=== PATIENT | male | born 1980 ===

== ENCOUNTER 2017-09-08 13:01 | Emergency (ER) | payer OTHER ==
[~2017-09-08] VITALS: Ht 170.2 cm; Wt 83.5 kg
[2017-09-08] MEDS ORDERED: MEDROLPACK PO (16:37)
[2017-09-08] MEDS ORDERED: ALL DAY ALLERGY10 M3 PO (16:37)
== END 2017-09-08 20:32 | disposition home or self-care (01) ==
LOC: ER 13:01
DX: R21 Rash and other nonspecific skin eruption (principal)